=== PATIENT | male | born 1945 ===

== ENCOUNTER 2024-02-20 06:57 | Day surgery (SDC) | payer OTHER ==
[2024-01-22 08:47] LABS: URINE APPEARANCE Clear; URINE BILIRRUBIN Negative (NEGATIVE); URINE BLOOD Negative; URINE COLOR Yellow; URINE GLUCOSE Negative (NEGATIVE); URINE LEUKOCYTE Negative; URINE NITRATE Negative; URINE PROTEIN Negative (NEGATIVE)
[2024-01-22 08:50] LABS: URINE EPITHELIAL CELLS 2.3 uL (0.0-38.8); URINE WBC 5.7 uL (0.0-23.2)
[2024-01-22 09:04] LABS: HEMATOCRIT 42.4 % (39.0-48.0); HEMOGLOBIN 14.2 g/dL (13-16.00); MEAN CELL VOLUME 99.4 fL (80.0-100.00); MEAN CORPUSCULAR HEMOGLOBIN 33.4 pg (27.00-32.0); MEAN CORPUSCULAR HGB CONC 33.6 g/dl (32.0-36.0); PLATELET COUNT 155 K/uL (150-450); RED BLOOD COUNT 4.26 M/uL (4.00-6.00); RED CELL DISTRIBUTION WIDTH 14.5 % (11.5-14.5)
[2024-01-22 09:31] LABS: INR 1.02; PARTIAL THROMBOPLASTIN TIME 29.9 SECONDS (22.0-34.0); PROTHROMBIN TIME 10.7 SECONDS (9.0-11.5)
[2024-01-22 09:53] LABS: CALCIUM 9.8 mg/dL (8.5-10.1); CREATININE SERUM 0.71 mg/dL (0.70-1.30); GFR 107.3; POTASSIUM 4.38 mEq/L (3.5-5.1)
[~2024-02-20] VITALS: Ht 177.8 cm; Wt 63.5 kg
[~2024-02-20 06:57] MED LIST: COZAAR100 MG PO; LEVO-T75 MCG PO; SIMVASTATIN40 MG PO
[2024-02-20] MEDS ORDERED: BUPIVACAINE HCL/MPF 0.5% 30ML VIAL ONE (11:49)
[2024-02-20] MEDS ORDERED: CEFTRIAXONE SODIUM 2,000 MG VIAL ONE (11:49)
[2024-02-20] MEDS ORDERED: ENOXAPARIN SODIUM 40 MG/0.4 ML SYRINGE SUBCUTANEO ONE ×2 (11:49→13:15)
[2024-02-20] MEDS ORDERED: LIDOCAINE HCL 1%/EPINEPHRINE 20ML VIAL IJ ONE ×2 (11:49→13:15)
[2024-02-20] MEDS ORDERED: METRONIDAZOLE/SODIUM CHLORIDE 500 MG/100 ML PIGGYBACK IV ONE ×2 (11:50→13:15)
[2024-02-20] MEDS ORDERED: CEFTRIAXONE SODIUM 2,000 MG VIAL IV ONE (13:15)
[2024-02-20] MEDS ORDERED: BUPIVACAINE HCL 30 ML VIAL IJ ONE (13:15)
[2024-02-20] MEDS ORDERED: PERCOCET 5-3251 EACH PO (13:57)
[2024-02-20] MEDS ORDERED: CELEBREX200MG PO (13:57)
[2024-02-20] MEDS ORDERED: POLY119PG PO (13:57)
[2024-02-20] MEDS ORDERED: NEURONTIN300 MG PO (13:57)
== END 2024-02-20 19:45 | disposition home or self-care (01) ==
LOC: CIR.AMB 06:57
PROVIDERS: ATTEND Surgery
DX: K40.90 Unilateral inguinal hernia, without obstruction or gangrene, not specified as recurrent (principal); I10 Essential (primary) hypertension; R00.1 Bradycardia, unspecified; E03.9 Hypothyroidism, unspecified
CPT/HCPCS: 49650; C1781